=== PATIENT | female | born 1985 | race Caucasian/White ===

== ENCOUNTER 2016-10-22 14:01 | Day surgery (SDC) | payer BC ==
[2016-10-19 13:09] LABS: BASOPHILS 0.6 %; BASOPHILS ABSOLUTE 0.03 10/3/uL (0.0-0.16); EOSINOPHILS 0.7 %; EOSINOPHILS ABSOLUTE 0.04 10/3/uL (0.0-0.53); HEMATOCRIT 36.3 % (36.0-48.0); HEMOGLOBIN 12.4 g/dL (12.0-16.0); LYMPHOCYTES 32.6 %; LYMPHOCYTES ABSOLUTE 1.75 10/3/uL (0.67-4.30); MEAN CORPUS HGB CONC 34.2 g/dL (32.0-36.0); MEAN CORPUSCULAR HEMOGLOB 29.4 pg (26.0-34.0); MEAN PLATELET VOLUME 10.5 fL (9.2-13.0); MONOCYTES 7.3 %; MONOCYTES ABSOLUTE 0.39 10/3/uL (0.21-1.20); NEUTROPHILS 58.8 %; NEUTROPHILS ABSOLUTE 3.15 10/3/uL (2.02-8.40); PLATELET COUNT 197 10/3/uL (150-400); RBC DISTRIBUTION WIDTH 12.2 % (12.0-16.0); RED CELL COUNT 4.22 10/6/uL (4.0-5.6); WHITE BLOOD CELLS 5.4 10/3/uL (4.5-10.5)
[2016-10-19 13:15] LABS: MANUAL DIFF NO %
[2016-10-19 13:16] LABS: PROTIME (NOT ORD) 13.4 SEC (12.0-14.5)
[2016-10-19 13:26] LABS: A/G RATIO 1.1 (0.7-1.9); ALBUMIN 3.9 G/DL (3.5-5.0); ALKALINE PHOSPHATASE 74 U/L (45-117); BUN (BLOOD UREA NITROGEN) 13 MG/DL (6-23); CALCIUM, SERUM 8.6 MG/DL (8.5-10.4); CHLORIDE, SERUM 108 MMOL/L (96-112); CO2 (CARBON DIOXIDE) 27 MMOL/L (24-34); CREATININE 0.64 MG/DL (0.55-1.02); GFR AFRICAN AMERICAN 139 ML/MIN (>=60); GFR NON AFRICAN AMERICAN 120 ML/MIN (>=60); GLOBULIN 3.5 G/DL (2.5-4.1); GLUCOSE, SERUM 77 MG/DL (60-99); POTASSIUM, SERUM 3.8 MMOL/L (3.5-5.3); SGOT(AST) 9 U/L (5-40); SGPT(ALT) 13 U/L (5-65); SODIUM, SERUM 144 MMOL/L (135-148); TOTAL BILIRUBIN 0.4 MG/DL (0-1.2); TOTAL PROTEIN 7.4 G/DL (6.0-8.5)
--- NOTE | ~2016-10-22 | OP ---
Record Of Operation [facility] [address] [place]. [address] NAME: SVEN VERA : 87 STATUS : [facility]#: [id number] AGE: 31 ADM/REG DATE : 10/22/16 MR#: [id number] REPORT SERV DATE: 10/22/16 DICTATED BY: PIPPA GILL JR. DATE: 10/22/16 REPORT STATUS : Draft TRANSCRIBED BY: MODCarin DATE: 10/22/16 DATE OF PROCEDURE: 10/22/2016 SURGEON: Pippa Gill M.D. PHYSICIAN NON INVASIVE CARDIOLOGIST: John Banuelos. PROCEDURE: Laparoscopic cholecystectomy. PREOPERATIVE DIAGNOSIS: Cholelithiasis. POSTOPERATIVE DIAGNOSIS: Cholelithiasis. ANESTHESIA: General. INDICATIONS: The patient has presented with right upper quadrant pain. She does have cholelithiasis on imaging, and cholecystectomy is indicated for symptomatic cholelithiasis. FINDINGS: On laparoscopic examination of the abdomen, there is evidence of significant inflammation in the gallbladder. It was removed successfully. It does contain numerous stones. No other significant findings were encountered. DESCRIPTION OF PROCEDURE: With adequate general anesthesia, the patient was placed in supine position. The abdomen was prepped and draped sterilely. A 0.5% Marcaine was used for local infiltration of all trocar sites. An infraumbilical incision was made. The dissection was carried down sharply through the subcutaneous tissues. The fascia and perineum were opened. The peritoneal cavity was entered. A balloon-tipped trocar was introduced. The abdomen was insufflated with CO2. The laparoscope was introduced with the above-noted findings under direct vision. A 10/11 was placed in the epigastric and then two 5 mm trocars in the subcostal. Gallbladder was identified, grasped, and retracted in cephalad manner. The cystic duct and artery were identified, doubly clipped, and divided. The gallbladder was then removed from its bed with electrocautery. Additional bleeding was controlled with electrocautery. The gallbladder was extracted through the umbilical site and submitted to Pathology. Again, bleeding was assured with electrocautery. It was irrigated thoroughly with saline. Hemostasis was assured. All trocars were removed under direct vision. The umbilical site was closed with [id number] 0 PDS and all wounds were then closed with dermal Monocryl. Sterile dressings were applied. The patient tolerated the procedure well and left the operating room in satisfactory condition. The estimated blood loss was 10 mL. PASCUAL/ELDON Pippa Gill Jr., M.D. Record Of [address] [address] NAME: SVEN VERA : 87 STATUS : [facility] PAT#: [id number] AGE: 31 ADM/REG DATE : 10/22/16 MR#: [id number] REPORT SERV DATE: 10/22/16 DICTATED BY: PIPPA GILL JR. DATE: 10/22/16 REPORT STATUS : Draft TRANSCRIBED BY: ELDON DATE: 10/22/16 / [id number] CC: Pippa Gill Jr., M.D.
[~2016-10-22 14:01] MED LIST: AMOXIL500 MG PO; X5 PO
== END 2016-10-22 19:30 | disposition home or self-care (01) ==
LOC: SDC 14:01
PROVIDERS: Specialist
PROC: 0FT44ZZ Resection of Gallbladder, Percutaneous Endoscopic Approach (ICD-10-PCS; principal; 2016-10-22 15:15)
DX: K80.20 Calculus of gallbladder without cholecystitis without obstruction (principal); Z90.710 Acquired absence of both cervix and uterus; Z98.890 Other specified postprocedural states
CPT/HCPCS: 71020; 80053; 82150; 83690; 85025; 85610; 85730; 88304; A9270-GY; J0690; J1170; J2250; J2405; J2550; J2710; J3010; Q9967